=== PATIENT | male | born 1970 | race Caucasian/White ===

== ENCOUNTER 2017-04-06 14:36 | Emergency (ER) | payer OTHER ==
[~2017-04-06] VITALS: Ht 172.7 cm; Wt 136.3 kg
[2017-04-06 16:51] VITALS: BP 139/94
== END 2017-04-06 16:55 | disposition home or self-care (01) ==
LOC: EMS 14:38
DX: F15.10 Other stimulant abuse, uncomplicated (principal); I10 Essential (primary) hypertension
CPT/HCPCS: 99283